=== PATIENT | female | born 1990 | race Caucasian/White ===

== ENCOUNTER 2020-08-15 23:56 | Emergency (ER) | payer MEDICAID ==
[~2020-08-15] VITALS: Ht 170.2 cm; Wt 55.5 kg
[2020-08-16 00:13] VITALS: BP 112/67
== END 2020-08-16 04:06 | disposition home or self-care (01) ==
LOC: ER 23:57
DX: O20.0 Threatened abortion (principal); N93.9 Abnormal uterine and vaginal bleeding, unspecified; Z3A.00 Weeks of gestation of pregnancy not specified
CPT/HCPCS: 36415; 84702; 99283

== ENCOUNTER 2020-08-18 04:48 | Emergency (ER) | payer MEDICAID ==
[~2020-08-18] VITALS: Ht 170.2 cm; Wt 54.5 kg
[2020-08-18 05:03] VITALS: BP 128/90
== END 2020-08-18 07:11 | disposition home or self-care (01) ==
LOC: ER 04:49
DX: O03.9 Complete or unspecified spontaneous abortion without complication (principal)
CPT/HCPCS: 36415; 84702; 99283